=== PATIENT | male | born 1965 | race Caucasian/White ===

== ENCOUNTER 2020-10-29 22:34 | Emergency (ER) | payer OTHER, SELFPAY ==
--- NOTE | ~2020-10-29 | XR_ITS ---
EXAMINATION: XR wrist RT min 3V INDICATION: Right wrist pain, initial encounter TECHNIQUE: Three views of the right wrist are obtained. COMPARISON: None available FINDINGS: There is an acute, traumatic, closed, intra-articular fracture of the distal radius. Soft t issue swelling surrounds the fracture. There is advanced osteoarthritis at the distal radioulnar join t and at the distal radius and distal ulna. Deformity of the proximal scaphoid likely reflects prior injury. There is a healed fracture involving the distal ulnar shaft. IMPRESSION: 1. Acute intra-articular fracture of the distal radius. 2. 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 Reviewed, dictated and finalized at location A.
[2020-10-29 22:35] VITALS: BP 140/88; PULSE 88; RESP 16; TEMP 36.7; O2SAT 97
--- NOTE | 2020-10-29 23:41 | ED.GENADULT ---
HPI - General Adult General Chief complaint: Extremity Injury, Upper Stated complaint: fell and hurt arm today Time Seen by Provider: 10/29/20 22:38 Source: patient and RN notes reviewed Mode of arrival: ambulatory Limitations: no limitations History of Present Illness HPI narrative: Patient is a 55-year-old male who presents with right wrist pain status post fall this afternoon while playing with his kids in the yard slipped and fell on an outstretched right wrist presents complaining of continued pain to the wrist notes history of prior fracture patient denies other injuries or complaints has not taken anything for his symptoms denies any other complaints as noted presents per private vehicle in no distress but does appear uncomfortable Related Data Allergies Allergy/AdvReac Type Severity Reaction Status Date / Time No Known Allergies Allergy Verified 10/29/20 22:40 Review of Systems Review of Systems: All systems reviewed & are unremarkable except as noted in HPI and below PMFSH Social History Social History (Updated 10/29/20 @ 23:42 by Darío Maya PA-C) Smoking status: Never smoker Gender identity (if verbalized by the patient): Male Exam Narrative: Exam Narrative: GENERAL: Well-appearing, well-nourished, and in no acute distress. HEAD: Normocephalic, atraumatic. EYES: PERRLA and EOMI. ENT: Nares clear, no rhinorrhea or epistaxis. Mucous membranes moist. Oropharynx without tonsillar hypertrophy exudate or other lesions. Bilateral TMs pearly cullen nonbulging EXTREMITIES: Swelling and tenderness of the distal right radius and ulna SKIN: Warm, dry, no rash. NEURO: No focal deficits. Alert and oriented x3. Neurovascularly intact PSYCH: Normal mood and affect. Course Course Emergency Course: Patient in the room in no distress aware of case findings treatment plan and diagnosis agreeing to follow-up as instructed is aware of recommendations and discussion with orthopedic surgery was placed in short arm OCL Consultations Consultation #1: Case discussed with Dr. Barcenas will follow in clinic Date: 10/29/20 Vital Signs Vital signs: Vital Signs Temperature 98.0 F 10/29/20 22:35 Pulse Rate 88 10/29/20 22:35 Respiratory Rate 16 10/29/20 22:35 Blood Pressure 140/88 10/29/20 22:35 Pulse Oximetry 97 10/29/20 22:35 Temperature 98.0 F 10/29/20 22:35 Pulse Rate 88 10/29/20 22:35 Respiratory Rate 16 10/29/20 22:35 Blood Pressure 140/88 10/29/20 22:35 Pulse Oximetry 97 10/29/20 22:35 Procedures Orthopedic Splinting/Casting Injury #1: Splinting/Casting Date: 10/29/20 Splinting/Casting Time: 23:43 Side: right Upper Extremity Injury Location: wrist Upper Extremity Immobilizer: volar splint Splint: customized in ED OCL: short arm Pre-Procedure Neuro Vascular Exam: normal Post-Procedure Neuro Vascular Exam: normal Medical Decision Making MDM Narrative Medical decision making narrative: Patients injury or pain is consistent with musculoskeletal etiology. No signs of neurological or vascular compromise on exam. Compartments and tisues are soft without signs of compartment syndrome. Pain is felt appropriate for further evaluation on an outpatient basis. Vital Signs Vital Signs: Vital Signs Temperature 98.0 F 10/29/20 22:35 Pulse Rate 88 10/29/20 22:35 Respiratory Rate 16 10/29/20 22:35 Blood Pressure 140/88 10/29/20 22:35 Pulse Oximetry 97 10/29/20 22:35 Temperature 98.0 F 10/29/20 22:35 Pulse Rate 88 10/29/20 22:35 Respiratory Rate 16 10/29/20 22:35 Blood Pressure 140/88 10/29/20 22:35 Pulse Oximetry 97 10/29/20 22:35 Imaging Data Radiologist's impression: ITS Impressions Wrist X-Ray 10/29/20 22:57 IMPRESSION: 1. Acute intra-articular fracture of the distal radius. 2. 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 Discharge Plan Discharge Clinical Impress
[2020-10-29 23:50] VITALS: BP 134/79; PULSE 74; RESP 16; O2SAT 98
== END 2020-10-29 23:50 | disposition home or self-care (01) ==
PROVIDERS: Emergency Provider Emergency Medicine
DX: S52.571A Other intraarticular fracture of lower end of right radius, initial encounter for closed fracture (principal); M19.031 Primary osteoarthritis, right wrist; W01.0XXA Fall on same level from slipping, tripping and stumbling without subsequent striking against object, initial encounter
CPT/HCPCS: 29125; 73110; 99284; A4565